=== PATIENT | male | born 1985 ===

== ENCOUNTER 2016-12-14 06:18 | Day surgery (SDC) | payer OTHER ==
[~2016-12-14 06:18] MED LIST: ACETAMINOPHEN 1000MG/100 ML PREMIX IV ONE
[2016-12-14] MEDS ORDERED: HYDROMORPHONE HCL 2 MG/ML VIAL IV ONE (11:10)
[2016-12-14] MEDS ORDERED: ACETAMINOPHEN/CODEINE TABLET PO ONE (11:10)
[2016-12-14] MEDS ORDERED: FENTANYL PF 100MCG/2ML VIAL IV ONE (14:00)
[2016-12-14] MEDS ORDERED: SEVOFLURANE 250 ML INH ONE (14:00)
[2016-12-14] MEDS ORDERED: KETOROLAC 30 MG/ML VIAL IVP ONE (14:00)
[2016-12-14] MEDS ORDERED: PROPOFOL 10 MG/ML VIAL IV ONE (14:00)
[2016-12-14] MEDS ORDERED: MIDAZOLAM HCL 2MG/2ML VIAL IV ONE (14:00)
[2016-12-14] MEDS ORDERED: ONDANSETRON HCL IV 4 MG/2 ML VIAL IVP ONE (14:00)
[2016-12-14] MEDS ORDERED: LIDOCAINE 2% MDV (20MG/ML) 20ML VIAL IV ONE (14:00)
--- NOTE | 2016-12-16 13:02 | Operative Note ---
DATE OF SURGERY: 12/14/2016 REFERRING PHYSICIAN: Steven Keller D.O. PREOPERATIVE DIAGNOSIS: Tear of the patellar tendon, right knee. POSTOPERATIVE DIAGNOSIS: Tear of the patellar tendon, right knee. OPERATIVE PROCEDURE: Open repair of patellar tendon, right knee. Surgeon: Yung Nayak D.O. DESCRIPTION: This 31-year-old male was taken to the Operating Room and placed in the supine position on the operating room table where general anesthesia was induced. The right lower extremity was then elevated, prepped with Hibiclens and draped in the usual sterile fashion. It was exsanguinated and then tourniquet inflated to 300 mmHg. An anterior longitudinal midline incision was made dissecting down through the skin and subcutaneous tissue. The patellar tendon obviously easily identified and a rent in the patellar tendon was identified at the juncture between the medial third and the lateral two-thirds with a deep cleft from disruption of the tendon fibers there. This was opened longitudinally in line with the tendon fibers and dissection was carried down through the tendon and synovial inflammation was present posteriorly and at the insertion site small fragments of tendon with bone attached were retrieved. These were floating free and not attached to the bone and these were debrided. This was a relatively small area being approximately 2 to 3 mm in width. This was debrided with a rongeur and curet to remove scarred debris from the wound. This was then copiously irrigated and healthy-appearing tendon was then noted and then this was repaired in a [id number] fashion using 0 Vicryl suture. Cjkzee-[id number] type sutures were used. Once this had been satisfactorily repaired, no defect was then present and the wound was irrigated and the subcutaneous tissue closed with 3-0 Vicryl and the skin with a running interlocking 4-0 nylon suture. Sterile dressings were applied with a knee immobilizer and the patient taken to the Recovery Room in satisfactory condition. GROSS PATHOLOGY: This patient demonstrated a disruption of the patellar tendon from the tibial tubercle. Also fragmentation of fibers was also noted in a longitudinal cleft near the juncture of the medial one-third and the lateral two-thirds of the patellar tendon. Yung Nayak DO CC: Steven Keller D.O. [facility]ENTERPooja
== END 2016-12-14 09:45 | disposition home or self-care (01) ==
LOC: SUR 06:18
PROVIDERS: ATTEND Orthopaedic Surgery
DX: S76.111A Strain of right quadriceps muscle, fascia and tendon, initial encounter (principal); F31.9 Bipolar disorder, unspecified
CPT/HCPCS: 27380; 01320; J1885; J2405; J3010; J1170